=== PATIENT | female | born 1950 | race Caucasian/White ===

== ENCOUNTER 2019-08-22 09:37 | Emergency (ER) | payer BC ==
[~2019-08-22] VITALS: Ht 167.6 cm; Wt 90.0 kg
[2019-08-22] MEDS ORDERED: traMADol 50MG tablet PO ONE (10:00)
[2019-08-22] MEDS ORDERED: ketorolac tromethamine 15mg/ml inj. IM ONE (10:25)
[2019-08-22 11:30] VITALS: BP 112/73
== END 2019-08-22 11:20 | disposition home or self-care (01) ==
LOC: ER 09:37
DX: M25.562 Pain in left knee (principal); M25.571 Pain in right ankle and joints of right foot; G89.29 Other chronic pain
CPT/HCPCS: 29505; 73564; 73610; 96372; 99284; J1885